=== PATIENT | male | born 1955 | race Caucasian/White ===

== ENCOUNTER 2025-06-22 00:05 | Outpatient (CLI) | payer MEDICARE, SELFPAY ==
[2025-06-22 09:57] LABS: Abs Immature Grans 0.02 10^3/uL (0.0-0.06); HCT 38.1 % (40.0-50.0); HGB 12.5 g/dL (13.5-17.5); Immature Grans % 0.2 %; MCH 30.1 pg (27.0-33.0); MCHC 32.8 % (32.0-36.0); MCV 92 fL (80-95); MPV 10.9 fL (8.0-11.0); Platelet Count 219 10^3/uL (130-400); RBC 4.15 10^6/uL (4.36-5.78); RDW 15.0 % (11.8-14.1); RDW-SD 50.9 fL; WBC 8.24 10^3/uL (4.4-10.8)
[2025-06-22 10:23] LABS: ALT 23 U/L (16-63); AST 22 U/L (15-37); Albumin 3.6 g/dL (3.4-5.0); Alkaline Phosphatase 92 U/L (46-116); Anion Gap 8.2 mmol/L (3-11); BUN 14 mg/dL (7-18); Bilirubin, Total 0.4 mg/dL (0.2-1.0); CO2 27.8 mmol/L (21.0-32.0); Calcium 8.6 mg/dL (8.5-10.1); Chloride 103 mmol/L (98-107); Estimated GFR 91.88 (mL/min/1.73m2); Glucose 100 mg/dL (74-106); Magnesium 2.0 mg/dL (1.8-2.4); Potassium 4.6 mmol/L (3.5-5.1); Sodium 139 mmol/L (136-145); TSH 1.46 uIU/mL (0.36-3.74); Total Protein 7.1 g/dL (6.4-8.2)
== END 2025-06-22 00:06 | disposition home or self-care (01) ==
LOC: LBO 00:05
PROVIDERS: PCP Physician Assistant; Visit Provider Internal Medicine Medical Oncology
DX: Z79.899 Other long term (current) drug therapy (principal); C34.92 Malignant neoplasm of unspecified part of left bronchus or lung; C78.4 Secondary malignant neoplasm of small intestine
CPT/HCPCS: 36415; 80053; 83735; 84439; 84443; 85025

== ENCOUNTER 2025-06-29 01:19 | Outpatient (CLI) | payer MEDICARE, SELFPAY ==
[2025-06-29 12:31] LABS: Abs Immature Grans 0.03 10^3/uL (0.0-0.06); HCT 36.7 % (40.0-50.0); HGB 12.0 g/dL (13.5-17.5); Immature Grans % 0.4 %; MCH 30.4 pg (27.0-33.0); MCHC 32.7 % (32.0-36.0); MCV 93 fL (80-95); MPV 10.6 fL (8.0-11.0); Platelet Count 238 10^3/uL (130-400); RBC 3.95 10^6/uL (4.36-5.78); RDW 14.8 % (11.8-14.1); RDW-SD 51.6 fL; WBC 6.91 10^3/uL (4.4-10.8)
[2025-06-29 12:52] LABS: ALT 34 U/L (16-63); AST 21 U/L (15-37); Albumin 3.7 g/dL (3.4-5.0); Alkaline Phosphatase 91 U/L (46-116); Anion Gap 5.5 mmol/L (3-11); BUN 10 mg/dL (7-18); Bilirubin, Total 0.3 mg/dL (0.2-1.0); CO2 29.5 mmol/L (21.0-32.0); Calcium 9.0 mg/dL (8.5-10.1); Chloride 101 mmol/L (98-107); Estimated GFR 91.88 (mL/min/1.73m2); Glucose 106 mg/dL (74-106); Magnesium 1.8 mg/dL (1.8-2.4); Potassium 4.3 mmol/L (3.5-5.1); Sodium 136 mmol/L (136-145); Total Protein 7.3 g/dL (6.4-8.2)
== END 2025-06-29 01:20 | disposition home or self-care (01) ==
LOC: LBO 01:19
PROVIDERS: PCP Physician Assistant; Visit Provider Internal Medicine Medical Oncology
DX: C34.92 Malignant neoplasm of unspecified part of left bronchus or lung (principal)
CPT/HCPCS: 36415; 80053; 83735; 85025

== ENCOUNTER 2025-07-12 03:30 | Outpatient (CLI) | payer MEDICARE, SELFPAY ==
[2025-07-12 08:34] LABS: Abs Immature Grans 0.01 10^3/uL (0.0-0.06); HCT 37.5 % (40.0-50.0); HGB 12.1 g/dL (13.5-17.5); Immature Grans % 0.2 %; MCH 30.2 pg (27.0-33.0); MCHC 32.3 % (32.0-36.0); MCV 94 fL (80-95); MPV 9.4 fL (8.0-11.0); Platelet Count 190 10^3/uL (130-400); RBC 4.01 10^6/uL (4.36-5.78); RDW 16.0 % (11.8-14.1); RDW-SD 55.1 fL; WBC 4.99 10^3/uL (4.4-10.8)
[2025-07-12 08:58] LABS: ALT 25 U/L (16-63); AST 20 U/L (15-37); Albumin 3.5 g/dL (3.4-5.0); Alkaline Phosphatase 109 U/L (46-116); Anion Gap 7.6 mmol/L (3-11); BUN 10 mg/dL (7-18); Bilirubin, Total 0.2 mg/dL (0.2-1.0); CO2 28.4 mmol/L (21.0-32.0); Calcium 8.6 mg/dL (8.5-10.1); Chloride 104 mmol/L (98-107); Glucose 102 mg/dL (74-106); Magnesium 2.0 mg/dL (1.8-2.4); Potassium 4.5 mmol/L (3.5-5.1); Sodium 140 mmol/L (136-145); TSH 1.81 uIU/mL (0.36-3.74); Total Protein 7.1 g/dL (6.4-8.2)
== END 2025-07-12 03:31 | disposition home or self-care (01) ==
LOC: LBO 03:31
PROVIDERS: PCP Physician Assistant; Visit Provider Internal Medicine Medical Oncology
DX: Z79.899 Other long term (current) drug therapy (principal); C34.92 Malignant neoplasm of unspecified part of left bronchus or lung; C78.4 Secondary malignant neoplasm of small intestine
CPT/HCPCS: 36415; 80053; 83735; 84439; 84443; 85025

== ENCOUNTER 2025-07-19 02:05 | Outpatient (CLI) | payer MEDICARE, SELFPAY ==
[2025-07-19 11:24] LABS: Abs Immature Grans 0.04 10^3/uL (0.0-0.06); HCT 34.7 % (40.0-50.0); HGB 11.4 g/dL (13.5-17.5); Immature Grans % 0.6 %; MCH 30.2 pg (27.0-33.0); MCHC 32.9 % (32.0-36.0); MCV 92 fL (80-95); MPV 10.1 fL (8.0-11.0); Platelet Count 229 10^3/uL (130-400); RBC 3.78 10^6/uL (4.36-5.78); RDW 15.9 % (11.8-14.1); RDW-SD 53.6 fL; WBC 6.24 10^3/uL (4.4-10.8)
[2025-07-19 11:43] LABS: Magnesium 1.9 mg/dL (1.6-2.6)
[2025-07-19 11:45] LABS: ALT 23 U/L (10-49); AST 26 U/L (<34); Albumin 4.2 g/dL (3.4-5.0); Alkaline Phosphatase 91 U/L (46-116); Anion Gap 6.4 mmol/L (3-11); BUN 16 mg/dL (9-23); Bilirubin, Total 0.20 mg/dL (0.2-1.2); CO2 27.6 mmol/L (20.0-31.0); Calcium 9.0 mg/dL (8.3-10.6); Chloride 106 mmol/L (98-107); Glucose 107 mg/dL (74-106); Potassium 4.8 mmol/L (3.5-5.1); Sodium 140 mmol/L (136-145); Total Protein 6.7 g/dL (5.7-8.2)
== END 2025-07-19 02:06 | disposition home or self-care (01) ==
LOC: LBO 02:05
PROVIDERS: PCP Physician Assistant; Visit Provider Internal Medicine Medical Oncology
DX: C34.92 Malignant neoplasm of unspecified part of left bronchus or lung (principal); C78.2 Secondary malignant neoplasm of pleura
CPT/HCPCS: 36415; 80053; 83735; 85025

== ENCOUNTER 2025-08-02 04:12 | Outpatient (CLI) | payer MEDICARE, SELFPAY ==
[2025-08-02 08:48] LABS: Abs Immature Grans 0.02 10^3/uL (0.0-0.06); HCT 37.7 % (40.0-50.0); HGB 12.1 g/dL (13.5-17.5); Immature Grans % 0.3 %; MCH 30.6 pg (27.0-33.0); MCHC 32.1 % (32.0-36.0); MCV 95 fL (80-95); MPV 9.4 fL (8.0-11.0); Platelet Count 177 10^3/uL (130-400); RBC 3.96 10^6/uL (4.36-5.78); RDW 17.3 % (11.8-14.1); RDW-SD 61.3 fL; WBC 6.47 10^3/uL (4.4-10.8)
[2025-08-02 09:08] LABS: Magnesium 2.0 mg/dL (1.6-2.6)
[2025-08-02 09:09] LABS: ALT 26 U/L (10-49); AST 20 U/L (<34); Albumin 4.3 g/dL (3.2-5.0); Alkaline Phosphatase 66 U/L (46-116); Anion Gap 7.7 mmol/L (3-11); BUN 12 mg/dL (9-23); Bilirubin, Total 0.30 mg/dL (0.2-1.2); CO2 29.3 mmol/L (20.0-31.0); Calcium 9.1 mg/dL (8.3-10.6); Chloride 102 mmol/L (98-107); Glucose 103 mg/dL (74-106); Potassium 4.4 mmol/L (3.5-5.1); Sodium 139 mmol/L (136-145); TSH 1.15 uIU/mL (0.55-4.78); Total Protein 7.1 g/dL (5.7-8.2)
== END 2025-08-02 04:13 | disposition home or self-care (01) ==
LOC: LBO 04:12
PROVIDERS: PCP Physician Assistant; Visit Provider Internal Medicine Medical Oncology
DX: Z79.899 Other long term (current) drug therapy (principal); C34.92 Malignant neoplasm of unspecified part of left bronchus or lung; C78.4 Secondary malignant neoplasm of small intestine
CPT/HCPCS: 36415; 80053; 83735; 84439; 84443; 85025

== ENCOUNTER 2025-08-09 01:27 | Outpatient (CLI) | payer MEDICARE, SELFPAY ==
[2025-08-09 14:22] LABS: Abs Immature Grans 0.04 10^3/uL (0.0-0.06); HCT 36.1 % (40.0-50.0); HGB 12.0 g/dL (13.5-17.5); Immature Grans % 0.6 %; MCH 31.2 pg (27.0-33.0); MCHC 33.2 % (32.0-36.0); MCV 94 fL (80-95); MPV 9.9 fL (8.0-11.0); Platelet Count 164 10^3/uL (130-400); RBC 3.85 10^6/uL (4.36-5.78); RDW 16.8 % (11.8-14.1); RDW-SD 57.8 fL; WBC 6.77 10^3/uL (4.4-10.8)
[2025-08-09 14:38] LABS: Magnesium 1.5 mg/dL (1.6-2.6)
[2025-08-09 14:39] LABS: ALT 25 U/L (10-49); AST 24 U/L (<34); Albumin 4.1 g/dL (3.2-5.0); Alkaline Phosphatase 78 U/L (46-116); Anion Gap 8 mmol/L (3-11); BUN 13 mg/dL (9-23); Bilirubin, Total 0.30 mg/dL (0.2-1.2); CO2 29.0 mmol/L (20.0-31.0); Calcium 8.8 mg/dL (8.3-10.6); Chloride 105 mmol/L (98-107); Glucose 101 mg/dL (74-106); Potassium 4.0 mmol/L (3.5-5.1); Sodium 142 mmol/L (136-145); Total Protein 6.4 g/dL (5.7-8.2)
== END 2025-08-09 01:28 | disposition home or self-care (01) ==
LOC: LBO 01:27
PROVIDERS: PCP Physician Assistant; Visit Provider Internal Medicine Medical Oncology
DX: C34.92 Malignant neoplasm of unspecified part of left bronchus or lung (principal); C78.4 Secondary malignant neoplasm of small intestine
CPT/HCPCS: 36415; 80053; 83735; 85025

== ENCOUNTER 2025-08-30 00:43 | Outpatient (CLI) | payer MEDICARE, SELFPAY ==
[2025-08-30 13:04] LABS: Abs Immature Grans 0.03 10^3/uL (0.0-0.06); HCT 34.3 % (40.0-50.0); HGB 11.2 g/dL (13.5-17.5); Immature Grans % 0.5 %; MCH 31.7 pg (27.0-33.0); MCHC 32.7 % (32.0-36.0); MCV 97 fL (80-95); MPV 10.0 fL (8.0-11.0); Platelet Count 248 10^3/uL (130-400); RBC 3.53 10^6/uL (4.36-5.78); RDW 17.1 % (11.8-14.1); RDW-SD 60.5 fL; WBC 5.91 10^3/uL (4.4-10.8)
[2025-08-30 13:24] LABS: ALT 22 U/L (10-49); AST 23 U/L (<34); Albumin 4.2 g/dL (3.2-5.0); Alkaline Phosphatase 87 U/L (46-116); Anion Gap 6.9 mmol/L (3-11); BUN 17 mg/dL (9-23); Bilirubin, Total 0.2 mg/dL (0.2-1.2); CO2 29.1 mmol/L (20.0-31.0); Calcium 8.9 mg/dL (8.3-10.6); Chloride 107 mmol/L (98-107); Glucose 105 mg/dL (74-106); Magnesium 1.9 mg/dL (1.6-2.6); Potassium 4.7 mmol/L (3.5-5.1); Sodium 143 mmol/L (136-145); Total Protein 6.8 g/dL (5.7-8.2)
[2025-08-30 13:26] LABS: TSH 1.63 uIU/mL (0.55-4.78)
== END 2025-08-30 00:44 | disposition home or self-care (01) ==
LOC: LBO 00:43
PROVIDERS: PCP Physician Assistant; Visit Provider Internal Medicine Medical Oncology
DX: Z79.899 Other long term (current) drug therapy (principal); C34.92 Malignant neoplasm of unspecified part of left bronchus or lung; C78.4 Secondary malignant neoplasm of small intestine
CPT/HCPCS: 36415; 80053; 83735; 84439; 84443; 85025